=== PATIENT | male | born 1960 | race Caucasian/White ===

== ENCOUNTER → 2022-08-13 | Day surgery (SDC) | payer BC ==
[~2022-08-13] MED LIST: AHCC PO; AMLODIPINE BESY10 MG PO; ASPIRIN81 MG PO; GLUCOSAMINE &1 EACH PO; LACTOFERRIN PO; LOSARTAN-HCTZ1 EAC2 PO; NAC600 MG PO; PRAVASTATIN SOD40 MG PO; TERBINAFINE HC250 MG PO; [UNRECOGNIZED DRUG - OTHER] PO
[2022-08-13 16:30] VITALS: BP 127/86
== END | disposition home or self-care (01) ==
LOC: OR 12:30
PROVIDERS: ATTEND Internal Medicine Gastroenterology
DX: Z12.11 Encounter for screening for malignant neoplasm of colon (principal); D12.4 Benign neoplasm of descending colon; K29.50 Unspecified chronic gastritis without bleeding; K57.30 Diverticulosis of large intestine without perforation or abscess without bleeding; K64.8 Other hemorrhoids; K44.9 Diaphragmatic hernia without obstruction or gangrene; K92.1 Melena; N40.0 Benign prostatic hyperplasia without lower urinary tract symptoms; I10 Essential (primary) hypertension; E78.5 Hyperlipidemia, unspecified; F17.200 Nicotine dependence, unspecified, uncomplicated; Z01.810 Encounter for preprocedural cardiovascular examination; Z79.82 Long term (current) use of aspirin; Z79.899 Other long term (current) drug therapy; Z80.0 Family history of malignant neoplasm of digestive organs
CPT/HCPCS: 43239; 45380; 93005